=== PATIENT | female | born 1965 | race Caucasian/White ===

== ENCOUNTER 2025-04-29 16:10 | Emergency (ER) | payer MEDICARE, SELFPAY ==
--- OUTSIDE RECORDS SUMMARY | 2021-04-13 04:48 | XMS_ITS | Continuity of Care Document ---
Author Organization [facility] Address [address] [place] [id number] Phone Care Team Providers Care Director Of Online Merchandising Name Role Phone Luis Alberto Yun MD Unavailable Unavailable Allergies, Adverse Reactions, Alerts Substance Reaction Status Criticality POTASSIUM CLAVULANATE itchingitching Active No I nformation AMOXICILLIN TRIHYDRATE itchingitching Active No Information Medications Medication Instructions Dosage Effective Dates (start - stop) Status Comments aspirin 81 mg tablet,delayed release take 1 tablet by oral route every day 81 MG - Active atorvastatin 20 mg tablet take 1 tablet by oral route every day 20 MG - Active Vitamin D3 2,000 unit capsule take 1 by Oral route once daily - Active Procedures Procedure Date Level Iv-surg Path Gross/t, Lvl IV ASC Facility Charge Colonoscopy Flex; W/remov Les- 21 Moderate Sedation - Endoscopy 1 Offic/outpt E&m Estab [facility] Facility Charge Colorectal Ca Scrn Not Hi Risk 18 Moderate Sedation - Endoscopy 8 Advance Directives Directive Yes / No Effective Date File Name No Information Encounters Encounter Description Practice Location Reason(s) For Visit Diagnoses Date Provider Providers Copied on Encounter [facility], [address] [place] [address], [place], [place], [id number] tel:[phone] [facility] No Information 1 Jama Sahu. [address] [place] [address], [id number], [place]. tel:[phone] [facility], [address] [place] [address], [id number] tel:[phone] [facility] No Information 1 Yogi granados. [address] [place] [address], [id number], [place]. tel:[phone] Referring Provider: Brandyn Snyder MD, [address] [place] [address], [id number]. tel:[phone] [facility], [address] [place] [address], [id number] tel:[phone] [facility] No Information 1 [facility]. [address] [place] [address], [id number], [place]. tel:[phone] Referring Provider: Rosalina Calix MD, [address] [place] [address], [place], [address]. tel:[phone] [facility], [address] [place] [address], [id number] tel:[phone] [facility] Other fecal abnormalitie sBenign neoplasm of cecumDvrtclo s of lg int w/o perforation or abscess w/o bleeding 1 Yogi granados. [address] [place] [address], [id number], [place]. tel:[phone] Referring Provider: Brandyn Snyder MD, [facility], [place], [address]. tel:[phone] Offic/outpt E&m Estab [facility], [address] [place] [address], [id number] tel:[phone] [facility] No Information 1 Yogi granados. [address] [place] [address], [id number], [place]. tel:[phone] Referring Provider: Rosalina Calix MD, [address] [place] [address], [place], [address]. tel:[phone] [facility], [address] [place] [address], [id number] tel:[phone] [facility] No Information [facility]. [address] [place] [address], [id number], [place]. tel:[phone] Referring Provider: Butch He MD O, [address] [place] [address], [id number]. tel:[phone] [facility], [address] [place] [address], [id number] tel:[phone] [facility] Encounter for screening for malignant neoplasm of colonDvrtclo s of lg int w/o perforation or abscess w/o bleeding Ying Rae. [address] [place] [address], [id number], [place]. tel:[phone] Referring Provider: Bandar Bagley MD, [address] [place] [address], [id number]. tel:[phone] [facility], [address] [place] [address], [id number] tel:[phone] [facility] No Information 8 Ying Rae. [address] [place] [address], [id number], [place]. tel:[phone] Referring Provider: Bandar Bagley MD, [address], [address]. tel:[phone] Family History Family Member Type Diagnosis Age At Onset Problem (finding) No family history of Co zhou polyps Problem (finding) No family history of Ca ncer, colon Payers Payer name Insurance type Covered libertarian ID Authoriza tion(s) [facility] PPO BL [id number] Social History Type Description Quantity Date Captured Comments Sex Female Smoking Status No Information Chief Complaint And Reason For Visit No Information Reason For Referral Reason For Referral No Information Plan Of Treatment Date Type Action Status Patient Education Learning About Divertic ulosis and Div~ completed History Of Present Illness Encounter Date Complaint History Of Prese nt Illness No Information Functional Status Date Functional Assessmen t No Information Instructions Date Instruction Additional Infor mation No Information Assessments Type Assessment Date No Information Patient Care Teams Name Effective Dates (start - stop) Status Members No Information
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
[2025-04-29 16:16] VITALS: BP 159/134; PULSE 100; TEMP 36.7; O2SAT 97; BMI 27.5
--- NOTE | 2025-04-29 16:24 | PC.NURSE ---
left hand 2nd digit appears displaced, finger is discolored.
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
--- OUTSIDE RECORDS SUMMARY | 2025-04-29 18:07 | XMS_ITS | Clinical Summary ---
Author Organization [facility] Address [address] [place] [address], [address] [place] [address] Care Team Providers Care Prevention Coordinator Name Role Phone Unavailable Primary Care Provider Unavailabl e Social History Tobacco Use Types Packs/Day Years Used Date Smoking Tobacco: Never Assessed Comments Unknown Sex and Gender Information Value Date Recorded Sex Assigned at Not on file Legal Sex Female 11:42 AM EST Gender Identity Not on file Sexual Orientation Not on file Plan of Treatment Not on file
--- OUTSIDE RECORDS SUMMARY | 2025-04-29 18:07 | XMS_ITS | Encounter Summary ---
Author Organization [facility] Address [address] [place] [address] Care Team Providers Care Metal Grader Name Role Phone Kieko Parmar MD Primary Care Provider [phone] Keiko Parmar MD Unavailable [phone] Dayana Jacinto DYNAMOMETER TESTER Unavailable [phone] Donnell Bliss LPC Unavailable Unavailable Encounter Details Date Type Department Care Team (Late st Contact Info) Description 01/14/2024 Abstract [facility] Medicine [address] [place] [phone] Keiko Parmar MD Social History Tobacco Use Types Packs/Day Years Used Date Smoking Tobacco: Every Day Cigarettes 0.5 41.7 Started: 1983 Passive Smoke Exposure: Past Smokeless Tobacco: Never Alcohol Use Standard Drinks/Week Comments Not Currently 2 (1 standard drink = 0.6 oz pur e alcohol) caffeine: coffee AUDIT-C Answer Date Recorded Q1: How often do you have a drink containing alcohol? Never 10/18/2023 Q2: How many drinks containi ng alcohol do you have on a typical day when you are drinking? Patient does not drink Q3: How often do you have si x or more drinks on one occasion? Never 10/18/2023 PHQ-2 Answer Date Recorded Patient Health Questionnaire-2 Score 5 10/18/2023 Comments Unknown Sex and Gender Information Value Date Recorded Sex Assigned at Not on file Legal Sex Female 2:13 PM EST Gender Identity Not on file Sexual Orientation Not on file documented as of this encounter Plan of Treatment Upcoming Encounters Date Type Department Care Team (Late st Contact Info) Description 05/26/2025 10:30 AM EDT Office Visit [facility] [address] [place] [address] Satinder Barrios MD [address] [place] [address] documented as of this encounter Visit Diagnoses Not on filedocumented in this encounter Additional Health Concerns Assessment Noted Time PHQ-9 Depression Total Score: 20 024 12:07 PM EST documented as of this encounter Care Teams Metal Grader Relationship Specialty Start Date End Date Keiko Parmar MD PCP - General Family Medicine 01/16/23 Keiko Parmar MD PCP - [employer] 09/03/23 Dayana Jacinto NP Nurse Practitioner Family Medicine 01/16/23 Donnell Bliss LPC Therapist Behavioral Health 03/02/25 documented as of this encounter
--- OUTSIDE RECORDS SUMMARY | 2025-04-29 18:07 | XMS_ITS | Encounter Summary ---
Author Organization [facility] Address [address] [place] [address] Care Team Providers Care Weatherization Coordinator Name Role Phone Keiko Parmar MD Primary Care Provider [phone] Keiko Parmar MD Unavailable [phone] Dayana Jacinto WALLPAPER CONSULTANT Unavailable [phone] Donnell Bliss LPC Unavailable Unavailable Encounter Details Date Type Department Care Team (Late Contact Info) Description 05/16/2024 Abstract [facility] Medicine [address] [place] [id number] Keiko Parmar MD Social History Tobacco Use [...] Answer Date Recorded Patient Health Questionnaire-2 Score 4 02/11/2024 Comments Unknown Sex and Gender Information Value [...] Family Medicine [address] [place] [address] Satinder Barrios MD [address] [place] [address] documented as of this encounter Visit Diagnoses Not on filedocumented in this encounter Additional Health Concerns Assessment Noted Time PHQ-9 Depression Total Score: 10 024 11:12 AM EDT documented as of this encounter Care Teams Weatherization Coordinator Relationship Specialty Start Date End Date Keiko Parmar MD PCP - General Family Medicine 01/16/23 Keiko Parmar MD PCP - [employer] 09/03/23 Dayana Jacinto NP Nurse Practitioner Family Medicine 01/16/23 Donnell Bliss LPC Therapist Behavioral Health 03/02/25 documented as of this encounter
--- OUTSIDE RECORDS SUMMARY | 2025-04-29 18:07 | XMS_ITS | Clinical Summary ---
Author Organization [facility] Address [address] [place] [address] Care Team Providers Care Publicity Manager Name Role Phone Keiko Parmar MD Primary Care Provider [phone] Keiko Parmar MD Unavailable [phone] Dayana Jacinto SEPARATOR OPERATOR [employer] Unavailable [phone] Donnell Bliss LPC Unavailable Unavailable Allergies Active Allergy Reactions Criticality Noted Date Comments Erythromycin Rash Low 04/16/2017 Fentanyl Unknown 06/22/2023 Methadone Unknown 06/22/2023 Penicillins Rash Low 04/16/2017 Tetracyclines & Related Rash Low 04/16/2017 Medications aspirin-acetaminop hen-caffeine (Excedrin Migraine) 250-250-65 MG tablet Take 1 tablet by mouth every 6 (six) hours if needed for headaches. Active Collagen-Vitamin C-Biotin (COLLAGEN 1500/C PO) Take by mouth. Active KRILL OIL PO Take by mouth. Active ACIDOPHILUS LACTOBACILLUS PO Take by mouth. Active MISC NATURAL PRODUCTS PO Agrisept- 10 drops daily Active Multiple Vitamins-Minerals (MULTIVITAMIN ADULT, MINERALS, PO) Take by mouth. Active naproxen sodium (Aleve) 220 MG tablet every 12 (twelve) hours. Active Ascorbic Acid (vitamin C) 1000 MG tablet Take 1,000 mg by mouth in the morning. Active Cholecalciferol (Vitamin D) 10 MCG/ML liquid Take by mouth. spray Active lidocaine (Lidoderm) 5 % patchIndications:D egeneration of lumbar intervertebral disc Apply 1 patch over 12 hours topically Daily Remove & discard patch within 12 hours or as directed by MD. 30 patch 11 11/15/20 24 Active ALPRAZolam (Xanax) 1 MG tabletIndications: Generalized anxiety disorder 1/2 tablet in AM and 1 tablet HS1/2 tablet in AM and 1 tablet HS 45 tablet 03/31/20 25 Active tiZANidine (Zanaflex) 4 MG tabletIndications: Degeneration of lumbar intervertebral disc Take 1 tablet (4 mg) by mouth every 8 (eight) hours if needed for muscle spasms 30 tablet 03/31/20 25 Active ALPRAZolam (Xanax) 1 MG tabletIndications: Generalized anxiety disorder 1/2 tablet in AM and 1 tablet HS1/2 tablet in AM and 1 tablet HS 45 tablet 03/02/20 25 025 Discontin ued(Reord er) tiZANidine (Zanaflex) 4 MG tabletIndications: Degeneration of lumbar intervertebral disc Take 1 tablet (4 mg) by mouth every 8 (eight) hours if needed for muscle spasms 30 tablet 03/02/20 25 025 Discontin ued(Reord er) Active Problems Problem Noted Date Diagnosed Date Ganglion cyst 02/10/2024 [facility] prescription benzodiazepine use 2023 Recurrent major depressive disorder 10/18/2023 Arthritis of left knee 06/19/2023 Internal derangement of left knee 06/19/2023 Cigarette smoker 06/19/2023 Depression 06/19/2023 Difficulty sleeping 06/19/2023 Elevated cortisol level 06/19/2023 Essential hypertension 06/19/2023 Hyperlipidemia 06/19/2023 Hypothyroidism 06/19/2023 Impaired fasting glucose 06/19/2023 Obesity (BMI 30-39.9) 06/19/2023 Pain of lumbar spine 06/19/2023 Stress 06/19/2023 Tubular adenoma of colon 06/19/2023 Vitamin D deficiency 06/19/2023 Degeneration of lumbar intervertebral disc 03/19 Generalized anxiety disorder 02/01/2023 Major depressive disorder, recurrent episode, mo derate 02/01/2023 Hyperplastic rectal polyp 07/13/2020 Encounter for colonoscopy du e to history of adenomatous colonic polyps 06/17/2020 Encounters Date Type Department Care Team Description 04/14/2025 8:00 AM EDT Office Visit [facility] Medicine [facility] [place] [address] Gypsy Guajardo NP Viral URI (Primary Dx) 04/14/2025 Bamboo flowsheet [facility] Medicine [address] [place] [address] Gypsy Guajardo NP 04/14/2025 Travel 03/31/2025 [facility] [address] [facility] [place] [phone] Keiko Brooks MD Generalized anxiety disorder ; Degeneration of lumbar intervertebral disc 03/02/2025 Refill [facility] [address] [facility] [place] [id number] Courtney Thomas NP Generalized anxiety disorder ; Degeneration of lumbar intervertebral disc 02/16/2025 4:30 PM EDT Social Work [facility] [address] [place] [address] Donnell Bliss LPC Generalized anxiety disorder ; Major depressive disorder, recurrent episode, moderate (HCC) 02/16/2025 Bamboo flowsheet [facility] [address] [place] [address] Donnell Bliss LPC 02/16/2025 Travel 02/02/2025 9:30 AM EDT Social Work [facility] [address] [place] [address] Donnell Bliss LPC Generalized anxiety disorder ; Major depressive disorder, recurrent episode, moderate (HCC); Marital conflict 02/02/2025 Travel 02/02/2025 Refill [facility] Medicine [address] [facility] [place] [address] Dayana Jacinto NP Generalized anxiety disorder ; Degeneration of lumbar intervertebral disc from Last 3 Months Immunizations Immunization Administration Dates Next Due Tdap 12/17/2023 Family History Medical History Relation Name Comments Drug abuse Brother Cancer Father Hypertension Father Heart disease Mother Cancer Other 1 Aunt/Uncle Diabetes Other 1 Aunt/Uncle Diabetes Other 2 Grandparent Gout Other 2 Grandparent Alcohol abuse Sibling Cirrhosis Sibling Heart disease Sibling Hypertension Sibling Relation Name Status Comments Brother Father Mother Other 1 Aunt/Uncle Other 2 Grandparent Sibling 2 brothers, 3 s isters Social History Tobacco Use Types Packs/Day Years Used Date Smoking Tobacco: Every Day Cigarettes 0.5 41.7 Started: 1983 Passive Smoke Exposure: Past Smokeless Tobacco: Never Tobacco Cessation:Ready to Q uit: Not Asked; Counseling Given: Not Answered Alcohol Use Standard Drinks/Week Comments Not Currently [...] Date Recorded Patient Health Questionnaire-2 Score 5 11/11/2024 Comments Unknown Sex and Gender Information Value Date Recorded Sex Assigned at Not on file Legal Sex Female 2:13 PM EST Gender Identity Not on file Sexual Orientation Not on file Last Filed Vital Signs Vital Sign Reading Time Taken Comments Blood Pressure 118/76 04/14/2025 8:11 AM EDT Pulse 78 04/14/2025 8:11 AM EDT Temperature - - Respiratory Rate 18 04/14/2025 8:11 AM EDT Oxygen Saturation 95% 04/14/2025 8:11 AM EDT Inhaled Oxygen Concentration - - Weight 74.8 kg (165 lb) 04/14/2025 8:11 AM EDT Height 159.4 cm (5' 2.75 ) 04/14/2025 8:11 AM ED T Body Mass Index 29.46 04/14/2025 8:11 AM EDT Plan of Treatment Upcoming Encounters Date Type Department Care Team (Late st Contact Info) Description 05/26/2025 10:30 AM EDT Office Visit [facility] [address] [facility] [place] [phone] Satinder Barrios MD [address] [facility] [place] [address] Health Maintenance Due Date Last Done Comments CT Colonography 1964 FIT-DNA 1964 FIT 1964 FOBT 1964 Lung Cancer Screening Shared Decision Making 1964 Sigmoidoscopy 1965 Mammogram 12/13/2018 12/13/2017 HPV/Cotest 06/02/2024 06/02/2019 Influenza Vaccine (#1) 2025 Medicare Annual Wellness (AWV) 06/23/2025 1 , 06/23/2024, 06/22/2023, Additional history exists Cervical Cancer Screening 07/21/2025 Pap Smear 07/21/2025 07/21/2022 Colonoscopy 07/05/2030 07/05/2020, 10/2019, 04/16/2017, Additional history exists Colorectal Cancer Screening 07/05/2030 Procedures Procedure Name Priority Date/Time Associated Diagnosis Comments THINPREP TIS PAP AND HPV MRNA E6/E7 REFLEX HPV 16,18/45 ([id number]) Routine 07/21/2022 COLONOSCOPY Routine 07/05/2020 12:00 PM EST Q - THINPREP(R) TIS W/RFL HPV MRNA E6/E7 Routine 06/02/2019 BI MAMMOGRAM SCREENING TOMOSYNTHESIS BILATERAL Routine 12/13/2017 12:00 PM EDT Tobacco use Major depressive disorder, single episode, unspecified Obesity, unspecified Anxiety disorder, unspecified Essential (primary) hypertension Changes in skin texture Unspecified lump in the right breast, unspecified quadrant from Last 3 Months or Most Recently Relevant to Health Maintenance Results * THINPREP TIS PAP AND HPV MRNA E6/E7 REFLEX HPV 16,18/45 ([id number]) (07/21/2022) CLINICAL INFORMATION: None given [facility] LMP: NONE GIVEN [facility] PREV. PAP: NONE GIVEN [facility] PREV. BX: NONE GIVEN [facility] SOURCE: None given [facility] STATEMENT OF ADEQUACY: SATISFACTORY FOR EVALUATION [facility] INTERPRETATION/RES ULT: SEE COMMENT [facility] Comment: Negative for intraepithelial lesion or malignancy. Atrophic pattern; predominantly parabasal cells COMMENT: SEE COMMENT [facility] Comment: This Pap test has been evaluated with computer assisted technology. Parabasal cells in smears that lack maturation due to atrophy or other hormonal reasons cannot be differentiated from transformation zone cells. Accordingly, presence or absence of endocervical or transformation zone components cannot be reported in this patient. FLEECER: SEE COMMENT [facility] Comment: NNO, CT(ASCP) CT screening location: [place] [address]. COMMENT SEE COMMENT [facility] Comment: EXPLANATORY NOTE: The Pap is a screening test for cervical cancer. It is not a diagnostic test and is subject to false negative and false positive results. It is most reliable when a satisfactory sample, regularly obtained, is submitted with relevant clinical findings and history, and when the Pap result is evaluated along with historic and current clinical information. HPV MRNA E6/E7 Not Detected Not Detected [facility] Comment: Methodology: Conservation Worker-Mediated Amplification This assay detects E6/E7 viral messenger RNA (mRNA) from 14 high-risk HPV types (16,18,31,33,35,39,45,51,52,56,58,59,66,68). Cervical sources are required for HPV testing. If a vaginal source from a patient who has had a total hysterectomy with removal of cervix was submitted, please contact the testing laboratory for alternative testing options. For additional information, please refer to http://education.MycooN.Idooble/faq/TGY749e5 (This link if provided for information/ educational purposes only.) 07/21/2022 us Dayana Jacinto NP [facility] Final Resul t [facility] * Colonoscopy (07/05/2020 12:00 PM EST) Anatomical Region Laterality Modality Endoscopy 07/05/2020 12:0 0 PM EST Narrative 07/05/2020 12:00 PM EST PERFORMED AT [facility] LOCATION:[id number] 3 colon polyps Procedure Note CONVERSION, GENERIC - 01/17/2023 PERFORMED AT [facility] LOCATION:[id number] 3 colon polyps Keiko Parmar MD ENDOSCOPY PROCEDURE ORDERABLE S Final Result * Q - THINPREP(R) TIS W/RFL HPV MRNA E6/E7 (06/02/2019) CLINICAL INFORMATION: None given [facility] LMP: None given [facility] PRE[facility]. PAP: None given [facility] PRE[facility]. BX: None given [facility] SOURCE: None given [facility] STATEMENT OF ADEQUACY: SEE NOTE [facility] Comment: Satisfactory for evaluation. Endocervical/transformation zone component present. INTERPRETATION /RESULT: Negative for intraepithelial lesion or malignancy. [facility] COMMENT: This Pap test has been evaluated with computer assisted technology. [facility] CYTOTECHNOLOGI ST: SEE NOTE [facility] Comment: BGG, SCT(ASCP) CT screening location: [place] [address]. COMMENT SEE NOTE [facility] Comment: EXPLANATORY NOTE: The Pap is a screening test for cervical cancer. It is not a diagnostic test and is subject to false negative and false positive results. It is most reliable when a satisfactory sample, regularly obtained, is submitted with relevant clinical findings and history, and when the Pap result is evaluated along with historic and current clinical information. 06/02/2019 Dayana Jacinto SEPARATOR OPERATOR [employer] [facility] Final Resul t [facility] * Bilateral screening mammogram with tomosynthesis (12/13/2017 12:00 PM EDT) Anatomical Region Laterality Modality Breast Bilateral Mammography Narrative 12/13/2017 12:00 PM EDT PERFORMED AT [facility] LOCATION:[id number] Procedure Note CONVERSION, GENERIC / Keiko Parmar MD - 03/09/2023 PERFORMED AT [facility] LOCATION:[id number] Keiko Parmar MD IMG BI PROCEDURES Final Resul t from Last 3 Months or Most Recently Relevant to Health Maintenance Insurance MEDICARE [employer] MEDICARE ADVANTAGE [employer] MEDICARE ADVANTAGE MEDICARE Care Teams Publicity Manager Relationship Specialty Start Date End Date Keiko Parmar MD PCP - General Family Medicine 01/16/23 Keiko Parmar MD PCP - [employer] 09/03/23 Dayana Jacinto NP Nurse Practitioner Family Medicine 01/16/23 Donnell Bliss LPC Therapist Behavioral Health 03/02/25
--- OUTSIDE RECORDS SUMMARY | 2025-04-29 18:07 | XMS_ITS | Encounter Summary ---
Author Organization [facility] Address [address] [place] [address] Care Team Providers Care Hospital Nursing Assistant Name Role Phone Keiko Parmar MD Primary Care Provider [phone] Keiko Parmar MD Unavailable [phone] Dayana Jacinto CRUISE CONSULTANT Unavailable [phone] Donnell Bliss LPC Unavailable Unavailable Encounter Details Date Type Department Care Team (Late Contact Info) Description 05/12/2024 Abstract [facility] Medicine [address] [place] [address] Keiko Parmar MD Social History Tobacco Use [...] Family Medicine [address] [place] [address] Satinder Barrios MD [address] [place] [address] documented as of this encounter Visit Diagnoses Not on filedocumented in this encounter Additional Health Concerns Assessment Noted Time PHQ-9 Depression Total Score: 10 024 11:12 AM EDT documented as of this encounter Care Teams Hospital Nursing Assistant Relationship Specialty Start Date End Date Keiko Parmar MD PCP - General Family Medicine 01/16/23 Keiko Parmar MD PCP - [employer] 09/03/23 Dayana Jacinto NP Nurse Practitioner Family Medicine 01/16/23 Donnell Bliss LPC Therapist Behavioral Health 03/02/25 documented as of this encounter
--- OUTSIDE RECORDS SUMMARY | 2025-04-29 18:07 | XMS_ITS | Encounter Summary ---
Author Organization [id number] [address] [place] [address] Care Team Providers Care Floral Department Specialist Name Role Phone Keiko Parmar MD Primary Care Provider [phone] Encounter Details Date Type Department Care Team (Latest Contact Info) Description 04/29/2025 Travel Social History Tobacco Use Types Packs/Day Years Used Date Smoking Tobacco: Every Day Cigarettes 1 15 Smokeless Tobacco: Never Comments:Working with someon kirsten currently to quit Alcohol Use Standard Drinks/Week [...] as of this encounter Plan of Treatment Not on file documented as of this encounter Visit Diagnoses Not on filedocumented in this encounter Additional Health Concerns Assessment Noted Time A Body Mass Index follow-up plan has been documented for the patient 07/13/2020 10:14 AM EST documented as of this encounter Care Teams Floral Department Specialist Relationship Specialty Start Date End Date Keiko Parmar MD [address] [place] [address] PCP - General Family Medicine 04/16/17 documented as of this encounter
--- OUTSIDE RECORDS SUMMARY | 2025-04-29 18:07 | XMS_ITS | Encounter Summary ---
Author Organization [facility] Address [address] [place] [address] Care Team Providers Care Rug Dyer Name Role Phone Keiko Parmar MD Primary Care Provider [phone] Keiko Parmar MD Unavailable [phone] Dayana Jacinto MOLD DRESSER Unavailable [phone] Donnell Bliss LPC Unavailable Unavailable Reason for Visit * Reason Onset Date Comments Med Refill 03/31/2025 Encounter Details Date Type Department Care Team (Late st Contact Info) Description 03/31/2025 Refill [facility] Family Medicine [address] [place] [address] Keiko Brooks MD [address] [place] [address] Generalized anxiety disorder ; Degeneration of lumbar intervertebral disc Social History Tobacco Use Types Packs/Day Years [...] on file documented as of this encounter Miscellaneous Notes * Telephone Encounter - Keiko Brooks MD - 03/31/2025 3:14 PM EDT documented in this encounter Plan of Treatment Upcoming Encounters Date Type Department Care Team (Late st Contact Info) Description 05/26/2025 10:30 AM EDT Office Visit [facility] [address] [place] [address] Satinder Barrios MD [address] [place] [address] documented as of this encounter Visit Diagnoses Diagnosis Generalized anxiety disorder Generalized anxiety disorder Degeneration of lumbar intervertebral disc Degeneration of lumbar or lumbosacral intervertebral disc documented in this encounter Additional Health Concerns Assessment Noted Time PHQ-9 Depression Total Score: 9 06/23/20 24 10:00 AM EDT documented as of this encounter Care Teams Rug Dyer Relationship Specialty Start Date End Date Keiko Parmar MD PCP - General Family Medicine 01/16/23 Keiko Parmar MD PCP - [employer] 09/03/23 Dayana Jacinto NP Nurse Practitioner Family Medicine 01/16/23 Donnell Bliss LPC Therapist Behavioral Health 03/02/25 documented as of this encounter
--- OUTSIDE RECORDS SUMMARY | 2025-04-29 18:07 | XMS_ITS | Encounter Summary ---
Author Organization [facility] Address [address] [facility] [place] [address] Care Team Providers Care Desk Assistant Name Role Phone Keiko Parmar MD Primary Care Provider [phone] Keiko Parmar MD Unavailable [phone] Dayana Jacinto HAT COPYIST Unavailable [phone] Donnell Bliss LPC Unavailable Unavailable Reason for Visit * Reason Onset Date Comments Med Refill 08/11/2024 Encounter Details Date Type Department Care Team (Late st Contact Info) Description 08/11/2024 Refill [facility] Medicine [address] [place] [address] Dayana Jacinto, HAT COPYIST Generalized anxiety disorder ; Degeneration of lumbar [...] Answer Date Recorded Patient Health Questionnaire-2 Score 3 06/23/2024 Comments Unknown Sex and Gender Information Value Date Recorded Sex Assigned at Not on file Legal Sex Female 2:13 PM EST Gender Identity Not on file Sexual Orientation Not on file documented as of this encounter Miscellaneous Notes * Telephone Encounter - Dayana Jacinto NP - 08/11/2024 8:10 AM EST OARRS checked, Rx's sent documented in this encounter Plan of Treatment Upcoming Encounters Date Type Department Care Team (Late st Contact Info) Description 05/26/2025 10:30 AM EDT Office Visit [facility] Medicine [address] [place] [address] Satinder Barrios MD [address] [place] [address] documented as of this encounter Visit Diagnoses Diagnosis Generalized anxiety disorder Generalized anxiety disorder Degeneration of lumbar intervertebral disc Degeneration of lumbar or lumbosacral intervertebral disc documented in this encounter Additional Health Concerns Assessment Noted Time PHQ-9 Depression Total Score: 9 06/23/20 24 10:00 AM EDT documented as of this encounter Care Teams Desk Assistant Relationship Specialty Start Date End Date Keiko Parmar MD PCP - General Family Medicine 01/16/23 Keiko Parmar MD PCP - [employer] 09/03/23 Dayana Jacinto NP Nurse Practitioner Family Medicine 01/16/23 Donnell Bliss LPC Therapist Behavioral Health 03/02/25 documented as of this encounter
--- OUTSIDE RECORDS SUMMARY | 2025-04-29 18:07 | XMS_ITS | Encounter Summary ---
Author Organization [facility] Address [address] [place] [address] Care Team Providers Care Corporate Manager Name Role Phone WonderKeiko ambrocio MD Primary Care Provider [phone] WonderKeiko ambrocio MD Unavailable [phone] WonderKeiko ambrocio MD Unavailable [phone] Dayana Jacinto NP Unavailable [phone] Donnell Bliss LPC Unavailable Unavailable Encounter Details Date Type Department Care Team (Late st Contact Info) Description 06/22/2023 Abstract [facility] Medicine [address] [place] [phone] Dayana Jacinto CUFFING MACHINE OPERATOR Social History Tobacco Use Types Packs/Day Years Used Date Smoking Tobacco: Every Day Cigarettes 0.5 41.7 Started: 1983 Passive Smoke Exposure: Past Smokeless Tobacco: Never Alcohol Use Standard Drinks/Week Comments Not Currently 2 (1 standard drink = 0.6 oz pur e alcohol) caffeine: coffee PHQ-2 Answer Date Recorded Patient Health Questionnaire-2 Score 2 06/22/2023 Comments Unknown Sex and Gender Information Value Date Recorded Sex Assigned at Not on file Legal Sex Female 2:13 PM EST Gender Identity Not on file Sexual Orientation Not on file documented as of this encounter Functional Status * Over the past 2 weeks, how often have you been bothered by any of the following problems? Question Answer Date of Assessment Author Little interest or pleasure in doing things Several days 06/22/2023 2:55 PM EDT Leonila Joshi MA Feeling down, depressed, or hopeless Several days 06/22/2023 2:55 PM EDT Leonila Joshi MA Patient Health Questionnaire -2 Score 2 06/22/2023 2:55 PM EDT Leonila Joshi MA * Question Answer Date of Assessment Author Trouble falling or staying asleep, or sleeping too much More than half the days 06/22/2023 2:55 PM EDT Leonila Joshi MA Feeling tired or having little energy More than half the days 06/22/2023 2:55 PM EDT Leonila Joshi MA * If you checked off any problems on this questionnaire so far, Question Answer Date of Assessment Author How difficult have these problems made it for you to do your work, take care of things at home, or get along with other people? Somewhat difficult 06/22/2023 2:55 PM EDT Leonila Joshi MA documented as of this encounter Plan of Treatment Upcoming Encounters Date Type Department Care Team (Late st Contact Info) Description 05/26/2025 10:30 AM EDT [facility] [address] [place] [address] Satinder Barrios MD [address] [place] [address] documented as of this encounter Visit Diagnoses Not on filedocumented in this encounter Care Teams Corporate Manager Relationship Specialty Start Date End Date Keiko Parmar MD PCP - General Family Medicine 01/16/23 Keiko Parmar MD PCP - [employer] Reach 01/25/23 09/02/23 Keiko Parmar MD PCP - [employer] 09/03/23 Dayana Jacinto NP Nurse Practitioner Family Medicine 01/16/23 Donnell Bliss LPC Therapist Behavioral Health 03/02/25 documented as of this encounter
--- OUTSIDE RECORDS SUMMARY | 2025-04-29 18:07 | XMS_ITS | Encounter Summary ---
Author Organization [facility] Address [address] [place] [address] Care Team Providers Care Bodily Injury Adjuster Name Role Phone Keiko Parmar MD Primary Care Provider Keiko Parmar MD Unavailable [phone] Jacinto REGIONAL DEDICATED TRUCK DRIVER Unavailable [phone] Donnell Bliss LPC Unavailable Unavailable Reason for Visit * Reason Onset Date Comments Med Refill 03/11/2024 Encounter Details Date Type Department Care Team (Late st Contact Info) Description 03/11/2024 Refill [facility] Medicine [address] [place] [address] Keiko Parmar MD Degeneration of lumbar intervertebral disc Social History [...] EDT Office Visit [facility] [address] [place] [address] Satinder Barrios MD [address] [facility] [place] [address] documented as of this encounter Visit Diagnoses Diagnosis Degeneration of lumbar intervertebral disc Degeneration of lumbar or lumbosacral intervertebral disc documented in this encounter Additional Health Concerns Assessment Noted Time PHQ-9 Depression Total Score: 10 024 11:12 AM EDT documented as of this encounter Care Teams Bodily Injury Adjuster Relationship Specialty Start Date End Date Keiko Parmar MD PCP - General Family Medicine 01/16/23 Keiko Parmar MD PCP - [employer] 09/03/23 Dayana Jacinto NP Nurse Practitioner Family Medicine 01/16/23 Donnell Bliss LPC Therapist Behavioral Health 03/02/25 documented as of this encounter
--- OUTSIDE RECORDS SUMMARY | 2025-04-29 18:07 | XMS_ITS | Clinical Summary ---
Author Organization [employer] s [facility] Address [id number] [address] [place] [address] Care Team Providers Care Regional Training Manager Name Role Phone Keiko Parmar MD Primary Care Provider [phone] Allergies Active Allergy Reactions Criticality Noted Date Comments Erythromycin Rash Low 04/16/2017 Penicillins Rash Low 04/16/2017 Tetracyclines Rash Low 04/16/2017 Medications ALPRAZolam (XANAX) 1 mg tablet Take 1 mg by mouth nightly as needed for anxiety. Active acetaminophen (TYLENOL) 650 mg 8 hr tablet Take 650 mg by mouth every 8 (eight) hours as needed for pain. Active cholecalciferol, vitamin D3, (VITAMIN D3) 1,000 units tablet Take 1,000 Units by mouth daily. Active ascorbic acid, vitamin C, (vitamin C) 1000 mg tablet Take 1,000 mg by mouth daily. Active calcium carbonate-vitami n D3 (CALCIUM 500 + D) 500 mg(1,250mg) -200 units per tablet Take 1 tablet by mouth 2 (two) times a day with meals. Active aspirin-acetamin ophen-caffeine (EXCEDRIN MIGRAINE) 250-250-65 mg per tablet Take 1 tablet by mouth every 6 (six) hours as needed for headaches. Active multivit-min/tomas sherri fumarate (MULTI VITAMIN ORAL) Take by mouth. Activ e ascorbic acid/collagen hydr (COLLAGEN PLUS VITAMIN C ORAL) Take by mouth. Activ e Lactobacillus acidophilus (PROBIOTIC ORAL) Take by mouth. Active KRILL OIL ORAL Take by mouth. Active UNABLE TO FIND Med Name: Hemplucid CBD oil 500 mg Active psyllium seed (PSYLLIUM ORAL) Take by mouth. 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/13/2020 Encounter for colonoscopy du e to history of adenomatous colonic polyps 06/17/2020 Encounters Date Type Department Care Team Description 04/29/2025 2:06 PM EDT - 04/29/2025 2:56 PM EDT Emergency [facility] - Emergency [address] [place] [address] Discharge Disposition: Left Without Treatment 04/29/2025 Travel from Last 3 Months Immunizations Immunization Administration Dates Next Due Tdap 12/17/2023 Family History Medical History Relation Name Comments No Known Problems Father No Known Problems Mother Relation Name Status Comments Father Mother Social History Tobacco Use Types Packs/Day Years Used Date Smoking Tobacco: Every Day Cigarettes 1 15 Smokeless Tobacco: Never Tobacco Cessation:Ready to Q uit: Not Asked; Counseling Given: Not Answered Comments:Working with someone currently to quit Alcohol Use Standard Drinks/Week [...] Sign Reading Time Taken Comments Blood Pressure 138/91 05/13/2024 10:35 AM EDT Pulse 74 05/13/2024 10:35 AM EDT Temperature 36.9 C (98.4 F) 05/13/2024 10:35 AM EDT Respiratory Rate 16 05/13/2024 10:35 AM EDT Oxygen Saturation 98% 05/13/2024 10:35 AM EDT Inhaled Oxygen Concentration - - Weight 70.3 kg (155 lb) 05/13/2024 10:35 AM EDT Height 162.6 cm (5' 4 ) 04/29/2025 2:18 PM EDT Body Mass Index 27.46 05/13/2024 10:35 AM EDT Plan of Treatment Health Maintenance Due Date Last Done Comments Tobacco Counseling 1964 Depression Screening 1976 Adult BMI Follow Up Plan 02/12/1982 Pap Smear 02/12/1985 Zoster (Shingles) Vaccine (1 of 2) 02/12/2014 Influenza Vaccine 05/04/2025 Adult BMI Screening 05/13/2025 05/13/2024 Tobacco Screening 05/13/2025 05/13/2024 Colonoscopy 07/05/2025 07/05/2020, 10/2019, 07/05/2020, Additional history exists DTaP,Tdap and Td Vaccines (2 - Td or Tdap) 12/16/2033 12/17/2023 Medical Devices Not on file Procedures Procedure Name Priority Date/Time Associated Diagnosis Comments COLONOSCOPY Routine 04/16/2017 from Last 3 Months or Most Recently Relevant to Health Maintenance Results * COLONOSCOPY (04/16/2017) us Scanning Provider External HEALTH MAINTENANCE Fi nal Result MANUALLY TRANSCRIBED RESULTS from Last 3 Months or Most Recently Relevant to Health Maintenance Insurance [employer] MED[employer] Care Teams Regional Training Manager Relationship Specialty Start Date End Date Keiko Parmar MD [address] [place] [address] PCP - General Family Medicine 04/16/17
--- OUTSIDE RECORDS SUMMARY | 2025-04-29 18:07 | XMS_ITS | Encounter Summary ---
Author Organization [facility] Address [address] [place] [address] Care Team Providers Care Wing Coverer Name Role Phone Keiko Parmar MD Primary Care Provider [phone] Keiko Parmar MD Unavailable [phone] Jacinto WILDLIFE PROTECTOR Unavailable [phone] Donnell Bliss LPC Unavailable Unavailable Reason for Visit * Reason Onset Date Comments Med Refill 01/10/2024 Encounter Details Date Type Department Care Team (Late st Contact Info) Description 01/10/2024 Refill [facility] Medicine [address] [place] [address] Keiko Parmar MD Social History Tobacco Use [...] encounter Miscellaneous Notes * Telephone Encounter - Shell Calvert MA - 01/10/2024 11:17 AM EDT My chart message sent to pt notifying her of Dr. Parmar's note. documented in this encounter Plan of Treatment Upcoming Encounters Date Type Department Care Team (Late st Contact Info) Description 05/26/2025 10:30 AM EDT Office Visit [facility] [address] [place] [address] Satinder Barrios MD [address] [place], [place] [id number] documented as of this encounter Visit Diagnoses Not on filedocumented in this encounter Additional Health Concerns Assessment Noted Time PHQ-9 Depression Total Score: 20 024 12:07 PM EST documented as of this encounter Care Teams Wing Coverer Relationship Specialty Start Date End Date Keiko Parmar MD PCP - General Family Medicine 01/16/23 Keiko Parmar MD PCP - [employer] 09/03/23 Dayana Jacinto NP Nurse Practitioner Family Medicine 01/16/23 Donnell Bliss LPC Therapist Behavioral Health 03/02/25 documented as of this encounter
== END 2025-04-29 17:25 | disposition left against medical advice (07) ==
LOC: ER 18:04
PROVIDERS: Emergency Provider Student in an Organized Health Care Education/Training Program; Family Provider Family Medicine
DX: S69.92XA Unspecified injury of left wrist, hand and finger(s), initial encounter (principal); Z53.29 Procedure and treatment not carried out because of patient's decision for other reasons; F10.129 Alcohol abuse with intoxication, unspecified; X58.XXXA Exposure to other specified factors, initial encounter
CPT/HCPCS: 99282